=== PATIENT | male | born 1970 | race Caucasian/White ===

== ENCOUNTER → 2021-05-19 | Outpatient (CLI) | payer MEDICARE ==
[~2021-05-19] VITALS: Ht 177.8 cm; Wt 99.8 kg
[~2021-05-19] MED LIST: AMBIEN10 MG PO; BACTRIM DS TAB1 EACH PO; BUPRENORPHIN-N1 EACH SL; CLINDAMYCIN HC150 MG PO; KEFLEX CAP 500500 MG PO; LEXAPRO10 MG PO; LIPITOR TAB 2020 MG PO; MUPIROCIN22 GM TP; NORVASC10 MG PO; PHENERGAN 25 MG25 M1 PO; PREDNISONE 10 M10 MG PO; PREDNISONE 20 M20 MG PO; PREDNISONE 50 M50 MG PO; PREDNISONE20 MG PO
[2021-05-19 12:06] LABS: HEMOGLOBIN 11.2 gm/dl (14.0-17.5); RED BLOOD COUNT 4.98 M/UL (4.20-5.50); WHITE BLOOD COUNT 14.3 K/UL (4.5-11.0)
[2021-05-19 12:33] LABS: BUN/CREATININE RATIO 18 (0-10)
== END ==
LOC: OPSV 05-13 10:00
PROVIDERS: Internal Medicine Gastroenterology
DX: K50.90 Crohn's disease, unspecified, without complications (principal); R10.9 Unspecified abdominal pain; D51.9 Vitamin B12 deficiency anemia, unspecified; K56.609 Unspecified intestinal obstruction, unspecified as to partial versus complete obstruction; K52.9 Noninfective gastroenteritis and colitis, unspecified; K46.9 Unspecified abdominal hernia without obstruction or gangrene; Z87.19 Personal history of other diseases of the digestive system; Z09 Encounter for follow-up examination after completed treatment for conditions other than malignant neoplasm; I10 Essential (primary) hypertension; K91.850 Pouchitis; K56.699 Other intestinal obstruction unspecified as to partial versus complete obstruction
CPT/HCPCS: 36415; 80053; 85025; 86140; J3380; J7050

== ENCOUNTER → 2021-09-02 | Outpatient (CLI) | payer MEDICARE ==
[~2021-09-02] VITALS: Ht 177.8 cm; Wt 99.8 kg
[2021-09-02 12:02] LABS: HEMOGLOBIN 11.7 gm/dl (14.0-17.5); RED BLOOD COUNT 5.36 M/UL (4.20-5.50); WHITE BLOOD COUNT 13.1 K/UL (4.5-11.0)
[2021-09-02 12:44] LABS: BUN/CREATININE RATIO 16 (0-10)
[2021-09-04 21:07] LABS: QUANTIFERON MITOGEN VALUE 3.83 IU/mL (.); QUANTIFERON NIL VALUE 0.02 IU/mL (.); QUANTIFERON TB1 AG VALUE 0.14 IU/mL (.); QUANTIFERON TB2 AG VALUE 0.01 IU/mL (.); QUANTIFERON-TB GOLD PLUS Negative (Negative)
== END ==
LOC: OPSV 11:00
PROVIDERS: Internal Medicine Gastroenterology
DX: K50.80 Crohn's disease of both small and large intestine without complications (principal)
CPT/HCPCS: 80053; 85025; 96365; J3380; J7050

== ENCOUNTER → 2021-10-16 | Outpatient (CLI) | payer MEDICARE ==
[~2021-10-16] VITALS: Ht 177.8 cm; Wt 99.8 kg
[2021-10-16 13:21] LABS: HEMOGLOBIN 12.5 gm/dl (14.0-17.5); RED BLOOD COUNT 5.28 M/UL (4.20-5.50); WHITE BLOOD COUNT 12.9 K/UL (4.5-11.0)
[2021-10-16 14:05] LABS: BUN/CREATININE RATIO 17 (0-10)
== END ==
LOC: OPSV 12:44
PROVIDERS: Internal Medicine Gastroenterology
DX: K50.80 Crohn's disease of both small and large intestine without complications (principal)
CPT/HCPCS: 80053; 85025; 86140; 96365; J3380; J7050

== ENCOUNTER → 2021-11-13 | Outpatient (CLI) | payer MEDICARE ==
[2021-11-13 13:31] LABS: HEMOGLOBIN 12.2 gm/dl (14.0-17.5); RED BLOOD COUNT 5.07 M/UL (4.20-5.50); WHITE BLOOD COUNT 15.1 K/UL (4.5-11.0)
[2021-11-13 13:50] LABS: BUN/CREATININE RATIO 27 (0-10)
== END ==
LOC: OPSV 12:51
PROVIDERS: Internal Medicine Gastroenterology
DX: K50.80 Crohn's disease of both small and large intestine without complications (principal)
CPT/HCPCS: 80053; 85025; 86140; 96365; J3380; J7050

== ENCOUNTER → 2021-12-28 | Outpatient (CLI) | payer MEDICARE ==
[~2021-12-28] VITALS: Ht 177.8 cm; Wt 99.8 kg
[2021-12-28 09:14] LABS: HEMOGLOBIN 12.8 gm/dl (14.0-17.5); RED BLOOD COUNT 5.21 M/UL (4.20-5.50); WHITE BLOOD COUNT 14.6 K/UL (4.5-11.0)
[2021-12-28 09:30] LABS: BUN/CREATININE RATIO 15 (0-10)
== END ==
LOC: OPSV 08:34
PROVIDERS: Internal Medicine Gastroenterology
DX: K50.80 Crohn's disease of both small and large intestine without complications (principal)
CPT/HCPCS: 80053; 85025; 86140; 96365; J3380; J7050

== ENCOUNTER → 2022-01-28 | Outpatient (CLI) | payer MEDICARE ==
[~2022-01-28] VITALS: Ht 177.8 cm; Wt 99.8 kg
[2022-01-28 12:07] LABS: HEMOGLOBIN 11.8 gm/dl (14.0-17.5); RED BLOOD COUNT 4.82 M/UL (4.20-5.50)
[2022-01-28 12:39] LABS: BUN/CREATININE RATIO 31 (0-10)
== END ==
LOC: OPSV 11:42
PROVIDERS: Internal Medicine Gastroenterology
DX: K50.80 Crohn's disease of both small and large intestine without complications (principal)
CPT/HCPCS: 80053; 85025; 86140; 96365; J3380; J7050